=== PATIENT | female | born 1995 | race American Indian/Alaskan Native ===

== ENCOUNTER 2017-10-14 14:09 | Emergency (ER) | payer OTHER ==
[2017-10-14] MEDS ORDERED: PROVENTIL IH ONE (14:20)
[2017-10-14] MEDS ORDERED: DUONEB *Not for PRN Use IH ONE ×2 (14:21→19:29)
--- NOTE | 2017-10-14 14:24 | Emergency Department Report ---
Chief Complaint: Dyspnea/Respdistress Stated Complaint: RESPIRATORY/CHEST TIGHTNESS - HPI History of Present Illness: This is a 22-year-old female nontoxic, well nourished in appearance, no acute signs of distress presents to the ED with c/o of shortness of breath and wheezing. Patient states has a history of diagnosed bronchospasms. Denies any chest pain, dizziness, headache, stiff neck, nausea, vomiting. Denies any allergies. - Exam Vital Signs: Vital Signs 10/14/17 14:15 Temperature 98.9 F Pulse Rate 115 H Respiratory 18 Rate Blood Pressure 136/73 O2 Sat by Pulse 100 Oximetry Physical Exam: GENERAL: The patient is a well-developed, well-nourished female in no apparent distress. Patient is alert and acting appropriately for age. Alert and oriented 3, no apparent distress, normal gait, atraumatic. LUNGS: Wheezing bilaterally inspiratory and expiratory on to auscultation. Non labor breathing. No intercostal retractions. Symmetrical with respiration. HEART: Regular rate and rhythm without murmur, rubs or gallops. No reproducible. S1, S2 present, regular rate and rhythm without murmur, no rubs, no gallops. MSE screening note: Focused history and physical exam performed. Due to findings the following was ordered: 1- This initial assessment/diagnostic orders/clinical plan/ treatment(s) is/are subject to change based on pt's health status, clinical progression and re- assessment by fellow clinical providers in the ED. Further treatment and workup at subsequent clinical provers discretion. Patient/guardians urged not to elope from ED as their condition may be serious if not clinically assessed and managed. 2-patient received a DuoNeb 5 and Solu-Medrol 125mg IM in MSE 3-CBC, BMP, CXR, EKG ED Disposition for MSE Condition: Stable
[2017-10-14 15:00] LABS: Basophils % (Auto) 0.3 % (0.0-1.8); Eosinophils % (Auto) 1.6 % (0.0-4.3); Hematocrit 44.4 % (30.3-42.9); Hemoglobin 14.4 gm/dl (10.1-14.3); Mean Corpuscular HGB Conc 32 % (30-34); Mean Corpuscular Hemoglobin 29 pg (28-32); Mean Corpuscular Volume 91 fl (79-97); Platelet Count 407 K/mm3 (140-440); Red Blood Count 4.89 M/mm3 (3.65-5.03); Red Cell Distribution Width 13.4 % (13.2-15.2); White Blood Count 12.2 K/mm3 (4.5-11.0)
[2017-10-14 15:18] LABS: Anion Gap 19 mmol/L; BUN/Creatinine Ratio 13; Blood Urea Nitrogen 8 mg/dL (7-17); Calcium 9.6 mg/dL (8.4-10.2); Carbon Dioxide 23 mmol/L (22-30); Chloride 100.5 mmol/L (98-107); Glucose 86 mg/dL (65-100); Potassium 4.1 mmol/L (3.6-5.0); Sodium 138 mmol/L (137-145)
--- NOTE | 2017-10-14 18:12 | XRay Report ---
FINAL REPORT PROCEDURE: XR CHEST ROUTINE 2V TECHNIQUE: PA and lateral chest radiographs were obtained. CPT 10006 HISTORY: Shortness of breath. COMPARISON: No prior studies are available for comparison. FINDINGS: Heart: Normal. Mediastinum/Vessels: Normal. Lungs/Pleural space: Normal. Bony thorax: No acute osseous abnormality. Other: IMPRESSION: No radiographic evidence of acute cardiopulmonary disease.
--- NOTE | 2017-10-14 19:35 | Emergency Department Report ---
ED Shortness of Breath HPI - General Chief Complaint: Dyspnea/Respdistress Stated Complaint: RESPIRATORY/CHEST TIGHTNESS Time Seen by Provider: 10/14/17 19:29 Source: patient, family (MOM) Mode of arrival: Ambulatory Limitations: No Limitations - History of Present Illness Initial Comments: 22 yo female with one day of sob. In November of 2016, she began having respiratory problems and has been put on ventolin and periodically needs to come to ED for treatment. She reports chest tightness, wheezing. Pt was wheezing and rhonchi herd intriage with oxygen saturation of 95% on RA. MD Complaint: shortness of breath, "asthma attack" -: Gradual, days(s) Pain Scale: 3 Consistency: intermittent Improves With: nothing Worsens With: nothing Known History Of: asthma Context: recent URI Associated Symptoms: chest pain, cough Treatments Prior to Arrival: none - Related Data Home Oxygen Therapy: No Previous Rx's Medication Instructions Recorded Last Taken Type HYDROcodone/APAP 5-325 [Hanna 1 each PO Q6HR PRN #14 tablet 02/13/16 Unknown Rx 5/325] predniSONE [Deltasone] 20 mg PO BID #10 tab 02/13/16 Unknown Rx ALBUTEROL Inhaler [ProAir HFA 2 puff IH QID PRN #1 inhalation 09/14/16 Unknown Rx Inhaler] Benzonatate [Tessalon Perles] 100 mg PO Q8HR #30 capsule 09/14/16 Unknown Rx predniSONE [Deltasone] 40 mg PO QDAY 5 Days tab 09/14/16 Unknown Rx Albuterol Sulfate [Albuterol 0.63% 0.63 mg IH QID #1 box 10/14/17 Unknown Rx NEBS] Albuterol Sulfate [Ventolin HFA] 2 puff IH Q4H PRN #1 hfa.aer.ad 10/14/17 Unknown Rx Azithromycin [Zithromax Z-ROULA] 1 dose PO DAILY 5 Days tab 10/14/17 Unknown Rx Dexamethasone 24 mg PO ONCE #1 tablet 10/14/17 Unknown Rx Fluticasone (Nf) [Flovent 220 2 puff IH BID #1 puff 10/14/17 Unknown Rx MCG/PUFF HFA] Ipratropium [Atrovent] 0.5 mg IH Q4HR #1 box 10/14/17 Unknown Rx Allergies Allergy/AdvReac Type Severity Reaction Status Date / Time No Known Allergies Allergy Unverified 09/17/13 18:20 ED Review of Systems ROS: Stated complaint: RESPIRATORY/CHEST TIGHTNESS Other details as noted in HPI Constitutional: denies: chills, fever Eyes: denies: eye pain, eye discharge, vision change ENT: denies: ear pain, throat pain Respiratory: cough. denies: shortness of breath, wheezing Cardiovascular: chest pain. denies: palpitations Endocrine: no symptoms reported Gastrointestinal: denies: abdominal pain, nausea, diarrhea Genitourinary: denies: urgency, dysuria, discharge Musculoskeletal: denies: back pain, joint swelling, arthralgia Skin: denies: rash, lesions Neurological: denies: headache, weakness, paresthesias Psychiatric: denies: anxiety, depression Hematological/Lymphatic: denies: easy bleeding, easy bruising ED Past Medical Hx - Past Medical History Additional medical history: "BRONCHIAL SPASMS" - Social History Smoking Status: Never Smoker Substance Use Type: Alcohol - Medications Home Medications: Home Medications Medication Instructions Recorded Confirmed Last Taken Type HYDROcodone/APAP 5-325 [Hanna 1 each PO Q6HR PRN #14 tablet 02/13/16 Unknown Rx 5/325] predniSONE [Deltasone] 20 mg PO BID #10 tab 02/13/16 Unknown Rx ALBUTEROL Inhaler [ProAir HFA 2 puff IH QID PRN #1 inhalation 09/14/16 Unknown Rx Inhaler] Benzonatate [Tessalon Perles] 100 mg PO Q8HR #30 capsule 09/14/16 Unknown Rx predniSONE [Deltasone] 40 mg PO QDAY 5 Days tab 09/14/16 Unknown Rx Albuterol Sulfate [Albuterol 0.63% 0.63 mg IH QID #1 box 10/14/17 Unknown Rx NEBS] Albuterol Sulfate [Ventolin HFA] 2 puff IH Q4H PRN #1 hfa.aer.ad 10/14/17 Unknown Rx Azithromycin [Zithromax Z-ROULA] 1 dose PO DAILY 5 Days tab 10/14/17 Unknown Rx Dexamethasone 24 mg PO ONCE #1 tablet 10/14/17 Unknown Rx Fluticasone (Nf) [Flovent 220 2 puff IH BID #1 puff 10/14/17 Unknown Rx MCG/PUFF HFA] Ipratropium [Atrovent] 0.5 mg IH Q4HR #1 box 10/14/17 Unknown Rx ED Physical Exam - General Limitations: No Limitations General appearance: alert, in no apparent distress - Head Head exam: Present: atraumatic, normocephalic - Eye Eye exam: Present: normal appearance - ENT ENT exam: Present: mucous membranes moist - Neck Neck exam: Present: normal inspection - Respiratory Respiratory exam: Present: normal lung sounds bilaterally, respiratory distress , wheezes, rhonchi, decreased breath sounds - Cardiovascular Cardiovascular Exam: Present: regular rate, normal rhythm. Absent: systolic murmur, diastolic murmur, rubs, gallop - GI/Abdominal GI/Abdominal exam: Present: soft, normal bowel sounds, other (centripital fat) - Rectal Rectal exam: Present: deferred - Extremities Exam Extremities exam: Present: normal inspection - Back Exam Back exam: Present: normal inspection, full ROM - Neurological Exam Neurological exam: Present: alert, oriented X3, CN II-XII intact - Psychiatric Psychiatric exam: Present: normal affect, normal mood - Skin Skin exam: Present: warm, dry, intact, normal color. Absent: rash ED Course Vital Signs 10/14/17 14:15 Temperature 98.9 F Pulse Rate 115 H Respiratory 18 Rate Blood Pressure 136/73 O2 Sat by Pulse 100 Oximetry - Reevaluation(s) Reevaluation #1: 10/14/17 23:24 PT IS MUCH BETTER IS NO LONGER WHEEZING AND CHEST NOT TIGHT. AND WAS SLIGHTLY ABNORMAL OXYGEN SATURATION 73 BUT PT FEEL NO DYSPNEA NOW AFTER MAGNESIUM TREATMENT THUS I WILL D/C HER HOME ED Medical Decision Making - Lab Data Result diagrams: 10/14/17 14:49 10/14/17 14:49 - EKG Data -: EKG Interpreted by Me EKG shows normal: sinus rhythm, axis, intervals, QRS complexes - Radiology Data Radiology results: report reviewed (CXR: NEGATIVE) Critical care attestation.: If time is entered above; I have spent that time in minutes in the direct care of this critically ill patient, excluding procedure time. ED Disposition Clinical Impression: Asthma exacerbation Qualifiers: Asthma severity: moderate Asthma persistence: unspecified Qualified Code(s): J45.901 - Unspecified asthma with (acute) exacerbation Disposition: TO HOME OR SELFCARE Is pt being admited?: No Does the pt Need Aspirin: No Condition: Stable Prescriptions: Albuterol Sulfate [Ventolin HFA] 2 puff IH Q4H PRN #1 hfa.aer.ad PRN Reason: Shortness Of Breath Albuterol Sulfate [Albuterol 0.63% NEBS] 0.63 mg IH QID #1 box Azithromycin [Zithromax Z-ROULA] 1 dose PO DAILY 5 Days tab Dexamethasone 24 mg PO ONCE #1 tablet Fluticasone (Nf) [Flovent 220 MCG/PUFF HFA] 2 puff IH BID #1 puff Ipratropium [Atrovent] 0.5 mg IH Q4HR #1 box Referrals: PRIMARY CARE, [Primary Care Provider] - 3-5 Days Forms: Work/School Release Form(ED) Time of Disposition: 23:26
[2017-10-14] MEDS ORDERED: MAGNESIUM SULFATE IV ONE (20:18)
[2017-10-14] MEDS ORDERED: MAGNESIUM SULFATE 2GM/50ML 2 GM/50 ML BAG IV ONE (20:52)
[2017-10-14 22:44] LABS: ISTAT Base Excess -4; ISTAT DEVICE 0; ISTAT PCO2 33.6 (35-45); ISTAT PH 7.403 (7.35-7.45); ISTAT PO2 73 (80-105); ISTAT SO2 95; ISTAT TCO2 22
[2017-10-14 23:10] VITALS: BP 128/69
== END 2017-10-14 23:43 | disposition home or self-care (01) ==
LOC: ED 14:09
DX: J45.901 Unspecified asthma with (acute) exacerbation (principal)
CPT/HCPCS: 36415; 71020; 80048; 82803; 84703; 85025; 93005; 93010; 96372; 96374; 99284; J2930; J3475

== ENCOUNTER 2019-02-03 09:13 | Emergency (ER) | payer OTHER ==
[2019-02-03] MEDS ORDERED: IBUPROFEN PO ONE (09:42)
--- NOTE | 2019-02-03 10:08 | XRay Report ---
RIGHT KNEE, 3 views: History: Knee pain. The bony architecture is intact without evidence of fracture or dislocation. No significant soft tissue abnormality is seen. IMPRESSION: Normal right knee.
--- NOTE | 2019-02-03 10:17 | Emergency Department Report ---
ED Lower Extremity HPI - General Chief Complaint: Extremity Injury, Lower Stated Complaint: (R) KNEE OUT OF PLACE Time Seen by Provider: 02/03/19 09:42 Source: patient Mode of arrival: Ambulatory Limitations: No Limitations - History of Present Illness Initial Comments: This is a 23-year-old female nontoxic, well nourished in appearance, no acute signs of distress presents to the ED with c/o of right knee pain 1 day. Patient stated that she twisted her knee. Patient denies any other trauma. Patient denies any numbness, tingling, fever, chills, nausea, vomiting, chest pain, shortness of breath, headache, stiff neck. Patient denies any joint swelling or joint redness. Patient denies decreased range of motion. Patient stated has decreased gait due to pain. Patient denies any allergies or significant past medical history. -: days(s) (1) Injury: Knee: Right Severity: mild Severity scale (0 -10): 8 Improves With: immobilization Worsens With: movement Associated Symptoms: swelling, able to partially bear weight, ambulatory. denies: snap/pop sensation, numbness, tingling, unable to bear weight - Related Data Previous Rx's Medication Instructions Recorded Last Taken Type HYDROcodone/APAP 5-325 [Citra 1 each PO Q6HR PRN #14 tablet 02/13/16 Unknown Rx 5/325] predniSONE [Deltasone] 20 mg PO BID #10 tab 02/13/16 Unknown Rx ALBUTEROL Inhaler (OR & NICU) 2 puff IH QID PRN #1 inhalation 09/14/16 Unknown Rx [ProAir HFA Inhaler] Benzonatate [Tessalon Perles] 100 mg PO Q8HR #30 capsule 09/14/16 Unknown Rx predniSONE [Deltasone] 40 mg PO QDAY 5 Days tab 09/14/16 Unknown Rx Albuterol Sulfate [Albuterol 0.63% 0.63 mg IH QID #1 box 10/14/17 Unknown Rx NEBS] Albuterol Sulfate [Ventolin HFA] 2 puff IH Q4H PRN #1 hfa.aer.ad 10/14/17 Unknown Rx Azithromycin [Zithromax Z-ROULA] 1 dose PO DAILY 5 Days tab 10/14/17 Unknown Rx Dexamethasone 24 mg PO ONCE #1 tablet 10/14/17 Unknown Rx Fluticasone (Nf) [Flovent 220 2 puff IH BID #1 puff 10/14/17 Unknown Rx MCG/PUFF HFA] Ipratropium [Atrovent] 0.5 mg IH Q4HR #1 box 10/14/17 Unknown Rx Ibuprofen [Motrin] 600 mg PO Q8H PRN #20 tablet 02/03/19 Unknown Rx Allergies Allergy/AdvReac Type Severity Reaction Status Date / Time No Known Allergies Allergy Unverified 09/17/13 18:20 ED Review of Systems ROS: Stated complaint: (R) KNEE OUT OF PLACE Other details as noted in HPI Constitutional: denies: chills, fever Eyes: denies: eye pain, eye discharge, vision change ENT: denies: ear pain, throat pain Respiratory: denies: cough, shortness of breath, wheezing Cardiovascular: denies: chest pain, palpitations Endocrine: no symptoms reported Gastrointestinal: denies: abdominal pain, nausea, diarrhea Genitourinary: denies: urgency, dysuria, discharge Musculoskeletal: denies: back pain, joint swelling, arthralgia Skin: denies: rash, lesions Neurological: denies: headache, weakness, paresthesias Psychiatric: denies: anxiety, depression Hematological/Lymphatic: denies: easy bleeding, easy bruising ED Past Medical Hx - Past Medical History Previous Medical History?: Yes Hx Asthma: Yes Additional medical history: "BRONCHIAL SPASMS" - Surgical History Past Surgical History?: No - Social History Smoking Status: Never Smoker Substance Use Type: Alcohol - Medications Home Medications: Home Medications Medication Instructions Recorded Confirmed Last Taken Type HYDROcodone/APAP 5-325 [Citra 1 each PO Q6HR PRN #14 tablet 02/13/16 Unknown Rx 5/325] predniSONE [Deltasone] 20 mg PO BID #10 tab 02/13/16 Unknown Rx ALBUTEROL Inhaler (OR & NICU) 2 puff IH QID PRN #1 inhalation 09/14/16 Unknown Rx [ProAir HFA Inhaler] Benzonatate [Tessalon Perles] 100 mg PO Q8HR #30 capsule 09/14/16 Unknown Rx predniSONE [Deltasone] 40 mg PO QDAY 5 Days tab 09/14/16 Unknown Rx Albuterol Sulfate [Albuterol 0.63% 0.63 mg IH QID #1 box 10/14/17 Unknown Rx NEBS] Albuterol Sulfate [Ventolin HFA] 2 puff IH Q4H PRN #1 hfa.aer.ad 10/14/17 Unknown Rx Azithromycin [Zithromax Z-ROULA] 1 dose PO DAILY 5 Days tab 10/14/17 Unknown Rx Dexamethasone 24 mg PO ONCE #1 tablet 10/14/17 Unknown Rx Fluticasone (Nf) [Flovent 220 2 puff IH BID #1 puff 10/14/17 Unknown Rx MCG/PUFF HFA] Ipratropium [Atrovent] 0.5 mg IH Q4HR #1 box 10/14/17 Unknown Rx Ibuprofen [Motrin] 600 mg PO Q8H PRN #20 tablet 02/03/19 Unknown Rx ED Physical Exam - General Limitations: No Limitations General appearance: alert, in no apparent distress - Head Head exam: Present: atraumatic, normocephalic - Extremities Exam Extremities exam: Present: normal inspection, full ROM, tenderness, normal capillary refill. Absent: joint swelling, calf tenderness - Expanded Lower Extremity Exam Right Hip exam: Present: normal inspection, full ROM Upper Leg exam: Present: normal inspection, full ROM Knee exam: Present: normal inspection, full ROM, tenderness, swelling, full knee extension. Absent: abrasion, laceration, ecchymosis, deformity, crepidus, dislocation, erythema, effusion, pain w/ pronation/supination, posterior draw sign, pain/laxity with valgus, pain/laxity with varus Lower Leg exam: Present: normal inspection, full ROM Ankle exam: Present: normal inspection, full ROM Foot/Toe exam: Present: normal inspection, full ROM Neuro vascular tendon exam: Present: no vascular compromise Gait: Positive: observed and limited by pain - Back Exam Back exam: Present: normal inspection, full ROM - Neurological Exam Neurological exam: Present: alert, oriented X3 - Psychiatric Psychiatric exam: Present: normal affect, normal mood - Skin Skin exam: Present: warm, dry, intact, normal color. Absent: rash ED Course Vital Signs 02/03/19 10:04 Respiratory 18 Rate - Reevaluation(s) Reevaluation #1: 02/03/19 10:13 Patient is speaking in full sentences with no signs of distress noted. ED Lower Extremity MDM - Medical Decision Making This is a 23-year-old female that presents with right knee strain. Patient is stable and was examined by me. I referred patient to an orthopedic doctor for further evaluation for possible MRI. X-ray has been obtained and dictated by the radiologist. Patient is notified of the x-ray report with noted by the patient. Patient does have normal gait with no tenderness and no joint swelling. No ecchymosis. no joint redness or swelling. Not warm to touch. No signs of cellulites present. Patient received does have a knee brace present. Patient was instructed to RICE therapy. Patient received Motrin for pain. Patient is discharged with Motrin. At time of discharge, the patient does not se em toxic or ill in appearance. No acute signs of distress noted. Patient agrees to discharge treatment plan of care. No further questions noted by the patient. Critical care attestation.: If time is entered above; I have spent that time in minutes in the direct care of this critically ill patient, excluding procedure time. ED Disposition Clinical Impression: Strain of right knee Disposition: DC- TO HOME OR SELFCARE Is pt being admited?: No Does the pt Need Aspirin: No Condition: Stable Instructions: Knee Pain (ED), RICE Therapy (ED) Additional Instructions: Follow-up with a orthopedic doctor in 3-5 days or if symptoms worsen and continue return to emergency room as soon as possible. Prescriptions: Ibuprofen [Motrin] 600 mg PO Q8H PRN #20 tablet PRN Reason: Pain Referrals: [facility] MD LYDIA [Primary Care Provider] - 3-5 Days PRIMARY CAREMD [Referring] - 3-5 Days KATERINE DUENAS MD [Staff Physician] - 3-[address] [facility] [Outside] - 3-5 Days Forms: Work/School Release Form(ED)
[2019-02-03 10:23] VITALS: BP 152/60
== END 2019-02-03 10:29 | disposition home or self-care (01) ==
LOC: ED 09:13
DX: S86.911A Strain of unspecified muscle(s) and tendon(s) at lower leg level, right leg, initial encounter (principal); J45.909 Unspecified asthma, uncomplicated; Z79.899 Other long term (current) drug therapy; X50.1XXA Overexertion from prolonged static or awkward postures, initial encounter; Y93.89 Activity, other specified; Y92.89 Other specified places as the place of occurrence of the external cause; Y99.8 Other external cause status
CPT/HCPCS: 99283